=== PATIENT | male | born 1995 | race Caucasian/White ===

== ENCOUNTER 2025-07-02 06:00 | Day surgery (SDC) | payer OTHER, MEDICAID, SELFPAY ==
[2025-07-02] VITALS (7 sets, daily range): BP systolic 112–122; BP diastolic 64–81; PULSE 72–82; RESP 16; TEMP 36.2–36.7; O2SAT 95–99; BMI 25.7
[2025-07-02] MEDS: Lactated Ringers 1,000 ML 15 ML IV (06:26)
--- NOTE | 2025-07-02 06:49 | PCM.PRE.AN2 ---
ASA Classification* ASA Classification ASA Classification: 2 Assessment & Plan Anesthesia* Anesthesia Assessment Anesthesia Assessment: Discussed sedation and/or anesthesia options, risks, benefits, and alternatives with patient/parents/legal guardian/POA. Questions invited. The patient/parents/legal guardian/POA seems to understand and agrees to proceed with anesthesia plan. Reviewed the physical assessment, medical history, allergy history and patient home medications list prior to surgery/procedure/anesthetic and documented any changes. Performed airway and anesthesia risk assessments. Anesthesia Type Anesthesia Type: MAC Anesthesia Focused Assessment* Temperature: 97.8 F Pulse Rate: 78 Blood Pressure: 122/81 Respiratory Rate: 16 Pulse Ox: 99 Airway Assessment Mouth opens: >3 cm Mallampati Score: II Labs Anesthesia Preop lab: CBC CHEMISTRY COAG Pre-Assessment Diagnosis/Proposed Procedure Planned Operative Procedure(s): EGD Anesthesia History Anesthesia History - allergist/pediatric pulmonologist: Anesthesia History - allergist/pediatric pulmonologist Hx Hospitalization No 06/29/25 13:30 Any Problems With Anesthesia No 06/29/25 13:30 Cholinesterase deficiency No 06/29/25 13:30 You/Your Family Experience No 06/29/25 13:30 fever (hyperthermia) with Relationship Recent Exposure to Contagious No 07/02/25 06:20 Disease Does patient have nerve No 06/29/25 13:30 stimulator Patient instructed to have device shut off --Does patient have Pacemaker No 07/02/25 06:20 or ICD? When Was Last Pacemaker Check QUESTION #4 FULL TEXT: You/Your Family Experience fever (hyperthermia) with Anesthesia Last Oral Intake Last Oral intake: Last Oral Intake NPO since 00:00 07/02/25 06:20 Meds taken in AM with sips of water? Meds patient instructed to take am of surgery PONV PONV - allergist/pediatric pulmonologist: PONV - allergist/pediatric pulmonologist Female No 06/29/25 13:30 HX of Motion Sickness No 06/29/25 13:30 HX of N/V After Surgery No 06/29/25 13:30 Non-Smoker Yes 06/29/25 13:30 Duration of Surgery greater No 06/29/25 13:30 than 60 minutes Number of Risk Factors 1 06/29/25 13:30 PONV Score Low Risk 06/29/25 13:30 Height & Weight Height & Weight: Anesthesia: Height & Weight Height 5 ft 10 in 07/02/25 06:20 Weight: 81.193 kg 07/02/25 06:20 Body Mass Index (BMI) 25.7 07/02/25 06:20 Respiratory Assessment Respiratory Assessment - allergist/pediatric pulmonologist: Respiratory Tract Infection Hx - allergist/pediatric pulmonologist Hx Respiratory Tract Infection No 06/29/25 13:30 STOP Sleep Apnea STOP Sleep Apnea - allergist/pediatric pulmonologist: STOP Sleep Apnea - allergist/pediatric pulmonologist Hx Hypertension No 06/29/25 13:30 Hx Sleep Apnea Yes: NEW DX 2024, DOES NOT 06/29/25 13:30 WEAR CPAP CPAP No 06/29/25 13:30 BIPAP No 06/29/25 13:30 Do you snore loudly (louder than talking or can be heard Do you often feel tired/ fatigued/ sleepy during daytime? Has anyone observed you stop breathing during sleep? STOP Results Positive 06/29/25 13:30 QUESTION #5 FULL TEXT : Do you snore loudly (louder than talking or can be heard through closed doors)? Tobacco Use History Tobacco Use History - allergist/pediatric pulmonologist: Tobacco Use History - allergist/pediatric pulmonologist Tobacco Use Smoking Status Never smoker 06/29/25 13:30 Hx Tobacco Use No 06/29/25 13:30 Years Smoking Packs Smoked per Day Smoking Cessation Date was within the last 15 years Hx Smoking Cessation Date Hx Smoking Cessation Counseling Hematologic Medial History Hematologic Hx - allergist/pediatric pulmonologist: Hematologic Medical Hx - insole taper Hx of Blood Transfusion No 06/29/25 13:30 Hx of Transfusion in last 3 No 06/29/25 13:30 Months Date of Last Transfusion (if within last 3 months) Ever experience any problems No 06/29/25 13:30 with transfusion(s)? Specify any problems Hx of Preganancy in last 3 N/A 06/29/25 13:30 Months Nurse Filling Out Transfusion [email or web address] 06/29/25 13:30 & Questions: Date: 06/29/25 06/29/25 13:30 Time: 13:33 06/29/25 13:30 Patient unable to answer at this time (ie. confused, unrespo /Reproduction History /Reproductive History - allergist/pediatric pulmonologist: /Reproductive Hx- allergist/pediatric pulmonologist Hx Now Gestational Age (in weeks): EDC: Hx Hx Para Hx Section SAB Active Medications Active Medications: Current Medications Generic Name Dose Route Start Last Admin Trade Name Freq PRN Reason Stop Dose Admin Lactated Ringer's 1,000 mls @ 15 mls/hr 07/02/25 06:15 07/02/25 06:26 IV 15 mls/hr .Q48H CRISTIAN Administration PFSH Medical History Depression History of steroid therapy Injury of back Back pain Gastric reflux Sleep apnea Non-smoker Chronic vertigo Vestibular migraine TBI (traumatic brain injury) Memory loss Dizziness Vitamin deficiency Frequent headaches Home Medications ?Medication ?Instructions ?Recorded ?Last Taken ?Type ondansetron 4 mg disintegrating 4 mg PO ONCE 06/03/25 Unknown History tablet gabapentin 300 mg capsule 900 mg PO QDAY 06/04/25 07/01/25 History galcanezumab-gnlm 120 mg/mL 120 mg subcut QMONTH 06/04/25 Unknown History subcutaneous syringe (Emgality) onabotulinumtoxinA 100 unit 20 unit IM ONCE 06/04/25 Unknown History solution for injection (Botox) ubrogepant 100 mg tablet (Ubrelvy) 100 mg PO ONCE PRN migraine 06/04/25 Unknown History headache pantoprazole 40 mg tablet,delayed 40 mg PO QDAY #30 tabs 06/07/25 07/01/25 Rx release Allergy/AdvReac Type Severity Reaction Status Date / Time codeine AdvReac Unknown drowsiness Verified 07/02/25 06:19 Family History Other Anxiety Asthma Cancer Heart disease Hypertension Myocardial infarction Thyroid disorder Surgical History H/O wisdom tooth extraction Social History Smoking Status: Never smoker alcohol intake: never substance use type: does not use frequency: 1-2 times per week Review of Systems (Anesthesia) ROS Narrative System reviewed and no additional complaints, except as documented.
--- NOTE | 2025-07-02 07:00 | EGD_PTH ---
PATIENT: DELMY BETANCOURT LOC: EN U#:[id number] AGE/SX: 30/M ROOM: RE07/02/[address]: Dr. Pierre Durán DO : 1995 BED: DIS: 07/02/2025 SPEC #: [id number] RECD: 07/02/25 08:00 STATUS: VALERIO HARLEEN #: [id number] KAMI: 07/02/25 07:[address]: Pierre Durán DEPT: SURGICAL PATHOLOGY RECD BY: Carlitos Garrido Tissues: A - Esophagus, NOS B - Gastric mucous membrane Procedures: Surgery Specimen Level IV HEADER OPERATION: EGD, biopsies and dilation PRE-OP DIAGNOSIS: Dysphagia TISSUE SUBMITTED: A- Random esophagus biopsy, B- Gastric antrum biopsy MICROSCOPIC DIAGNOSIS A. Esophagus, random, biopsy: - Benign squamous mucosa, negative for eosinophils. B. Gastric antrum, biopsy: - Oxyntic mucosa with mild foveolar hyperplasia. - Negative for Helicobacter-like organisms (H&E). MICROSCOPIC DESCRIPTION Slides are reviewed. GROSS DESCRIPTION A. Received in fixative is one container labeled with the patient's name and designated Random esophagus biopsy. The specimen consists of three irregular fragments of roy tissue that measure 0.4 to 0.5 cm. The specimen is totally submitted in one cassette. B. Received in fixative is one container labeled with the patient's name and designated Gastric antrum biopsy. The specimen consists of one irregular fragment of roy tissue that measures 0.6 cm. The specimen is totally submitted in one cassette. CA 07/02/2025 CPT:51365f0
--- NOTE | 2025-07-02 07:26 | PCM.HP.STD ---
HPI - General General Date of Admission: 07/02/25 Date of Service: 07/02/25 Chief Complaint: dysphagia HPI Narrative DELMY BETANCOURT, is a 30 M who presents [ Chief Complaint: Dysphagia [facility] ED 05/12/2025 due to food impaction. History of swallowing dysfunction as a child. Administered IM glucagon and antiemetic. On reassessment symptoms improved. Discharged with GI follow-up. OV 06/04/25 patient here today for evaluation of his dysphagia since childhood. Patient has difficulty swallowing with every meal. He will eat slowly, chew well and have water near him when he eats. Most recently patient had a severe episode where he felt chicken stuck in his esophagus and presented to the ED. He was given medication which resolved his symptoms. This has happened on a few occasions. Patient has heartburn daily to every other day typically in the evening after meals. He has never been on a PPI before. Patient has frequent nausea after meals and will often vomit if he goes out to dinner. He denies lower GI tract symptoms including diarrhea, constipation or blood in his stool. [facility] Medical History Depression History of steroid therapy Injury of back Back pain Gastric reflux Sleep apnea Non-smoker Chronic vertigo Vestibular migraine TBI (traumatic brain injury) Memory loss Dizziness Vitamin deficiency Frequent headaches Home Medications ?Medication ?Instructions ?Recorded ?Last Taken ?Type ondansetron 4 mg disintegrating 4 mg PO ONCE 06/03/25 Unknown History tablet gabapentin 300 mg capsule 900 mg PO QDAY 06/04/25 07/01/25 History galcanezumab-gnlm 120 mg/mL 120 mg subcut QMONTH 06/04/25 Unknown History subcutaneous syringe (Emgality) onabotulinumtoxinA 100 unit 20 unit IM ONCE 06/04/25 Unknown History solution for injection (Botox) ubrogepant 100 mg tablet (Ubrelvy) 100 mg PO ONCE PRN migraine 06/04/25 Unknown History headache pantoprazole 40 mg tablet,delayed 40 mg PO QDAY #30 tabs 06/07/25 07/01/25 Rx release Allergy/AdvReac Type Severity Reaction Status Date / Time codeine AdvReac Unknown drowsiness Verified 07/02/25 06:19 Family History Other Anxiety Asthma Cancer Heart disease Hypertension Myocardial infarction Thyroid disorder Surgical History H/O wisdom tooth extraction Social History Smoking Status: Never smoker alcohol intake: never substance use type: does not use frequency: 1-2 times per week ROS Constitutional Constitutional: Denies fatigue, fever(s), poor appetite, weight gain or weight loss Gastrointestinal Gastrointestinal: Denies belching, bloating, change in bowel habits, change in stool character, chewing difficulty, coffee ground emesis, constipation, cramping, diarrhea, dyspepsia, dysphagia, early satiety, excessive flatus, fecal incontinence, heartburn, hematemesis, hematochezia, hemorrhoids, loose stools, melena, nausea, odynophagia, rectal bleeding, tenesmus, vomiting or weight changes Vital Signs Vital Signs Vital Signs: 07/02/25 06:20 07/02/25 06:20 07/02/25 06:49 Temperature 97.8 F 97.8 F Temperature Source Temporal Pulse Rate 78 78 Respiratory Rate 16 16 Respiratory Pattern Normal Blood Pressure 122/81 H 122/81 H Blood Pressure Mean 94 Blood Pressure Source Monitor Blood Pressure Position Sitting Blood Pressure Location Left Arm Pulse Ox 99 99 Oxygen Delivery Method Room Air Weight Weight: 179 lb Body Mass Index (BMI) 25.7 Physical Exam Const alert, oriented x3, no apparent distress and healthy appearing General Appearance: cooperative GI normal to inspection, nondistended, normoactive bowel sounds, soft to palpation, non-tender and non-distended Percussion: normal to percussion Rectal Exam: deferred Assessment & Plan Assessment/Plan (1) Dysphagia: PLAN: Assessment and Plan Assessment and Plan (1) Dysphagia: Status: Acute Plan: Phi is a 29-year-old male patient here today for evaluation of dysphagia since his childhood. Most recently patient had a severe episode for which he presented to [facility] ED for. He was given IM glucagon and ondansetron which resolved his symptoms. Patient has difficulty swallowing with every meal. Patient also endorses daily to every other day heartburn, nausea and intermittent vomiting. Patient will undergo EGD for assessment of his upper GI tract to rule out GERD, EOE, esophageal stricture, and/or gastritis. Patient was agreeable to proceed. I have started patient on pantoprazole 40 mg daily. - EGD - Pantoprazole 40 mg daily - Follow-up after procedure (2) Heartburn: Status: Acute (3) Nausea and vomiting: Status: Acute Medications: New pantoprazole 40 mg PO QDAY 30 tabs 1RF ]
--- NOTE | 2025-07-02 08:00 | POSTOP.ANE_ITS ---
Anesthesia: Postop Eval I
--- NOTE | 2025-07-02 08:00 | PCM.POST.ANE ---
Anesthesia: Postop Eval I Current Vital Signs Temperature: 98.1 F Pulse Rate: 82 Blood Pressure: 112/70 Respiratory Rate: 16 Pulse Ox: 96 Oxygen Delivery Method: Room Air Assessment Airway patent: Yes Spontaneous unlabored respirations: Yes Mental status: Asleep nausea: No Vomiting: No Anesthesia Complication: No Fluid Hydration Crystalloid volume administer (ml): 400 Total IV fluid infused: 400 Progress Note Anesthesia document: Postop Eval 1 completed: Yes
--- NOTE | 2025-07-02 08:02 | OP.EGD_ITS ---
Patient Name: Dilip Stone
--- NOTE | 2025-07-02 08:39 | POSTOPAN2_ITS ---
Anesthesia Postop Eval I Sum
--- NOTE | 2025-07-02 08:39 | PCM.POSTANE2 ---
Anesthesia Postop Eval I Sum Postop Eval Completion status Anesthesia document: Postop Eval 1 completed: Yes Anesthesia Postop Eval I Summary Anesthesia Postop Eval I Summary: Anesthesia Postop Eval I: Assessment Summary Airway patent Yes 07/02/25 08:01 [email or web address] Spontaneous unlabored Yes 07/02/25 08:01 [email or web address] respirations Mental status Asleep 07/02/25 08:01 [email or web address] nausea No 07/02/25 08:01 [email or web address] Vomiting No 07/02/25 08:01 [email or web address] Anesthesia Postop Eval I: Fluid Summary Crystalloid volume administer 400 07/02/25 08:01 [email or web address] (ml) Colloids volume administered ( ml) Blood Product volume administered (ml) Total IV fluid infused 400 07/02/25 08:01 [email or web address] Anesthesia Postop Eval I: Summary Notes Anesthesia Complication No 07/02/25 08:01 [email or web address] Anesthesia Complication Comment: Post-operative progress note Anesthesia: Postop Eval II Evaluation Mental status: Awake Pain Level: 0 nausea: No Vomiting: No
== END 2025-07-02 08:28 | disposition home or self-care (01) ==
LOC: EN 06:04 → AC 06:07
PROVIDERS: Visit Provider Internal Medicine Gastroenterology
PROC: 0DJ08ZZ Inspection of Upper Intestinal Tract, Via Natural or Artificial Opening Endoscopic (ICD-10-PCS; CPT 43235; principal; 2025-07-02 06:55)
DX: R13.10 Dysphagia, unspecified (principal); R10.85 Abdominal pain of multiple sites; K21.9 Gastro-esophageal reflux disease without esophagitis; K31.84 Gastroparesis; Z79.899 Other long term (current) drug therapy; R11.2 Nausea with vomiting, unspecified; K22.4 Dyskinesia of esophagus; K31.89 Other diseases of stomach and duodenum
CPT/HCPCS: 43248; 88305; C1769; J2405